=== PATIENT | female | born 1970 | race Caucasian/White ===

== ENCOUNTER 2016-05-10 09:33 | Inpatient (IN) | payer OTHER ==
[~2016-05-10] VITALS: Ht 175.3 cm; Wt 104.5 kg
[~2016-05-10 09:33] MED LIST changes: -ALPR.25 PO; -ALPR0.5T3 PO; -ASPI-110 PO; -ASPI81CH CHEW; -ATOR20TA15 PO; -B12-1CHW CHEW; -BIOT1CAP2 PO; -BIOT50005 PO; -CELE40TA PO; -CYAN1000P IM; -CYCL1TAB29 PO; -FERR1TAB36 PO; -FURO40TA PO; -GLIP5TAB8 PO; -HYDR-3583 PO; -LISI-519 PO; -LORA10TA PO; -LOSA50TA PO; -MULTCHW27 PO; -NEUR300C PO; -NITR0.4S SL; -PERC10TA27 PO; -PROM25TA5 PO; -VENL75TA PO; -VITA100T2 PO; -VITAMIN B12 INJ; -WALKER WHEELS/F1 MIS; -ZOFR4TAB PO
[2016-05-10] MEDS ORDERED: ASPI-110 PO (11:17)
[2016-05-10] MEDS ORDERED: ALPR0.5T3 PO (11:22)
[2016-05-10] MEDS ORDERED: BIOT1CAP2 PO (11:22)
[2016-05-10] MEDS ORDERED: MULTCHW27 PO (11:22)
[2016-05-10] MEDS ORDERED: FURO40TA PO (11:23)
[2016-05-10] MEDS ORDERED: LORA10TA PO (11:25)
[2016-05-10] MEDS ORDERED: ATOR20TA15 PO (11:25)
[2016-05-10] MEDS ORDERED: GLIP5TAB8 PO (11:25)
[2016-05-10] MEDS ORDERED: LOSA50TA PO (11:25)
[2016-05-10] MEDS ORDERED: CYCL1TAB29 PO (11:27)
[2016-05-10] MEDS ORDERED: NITR0.4S SL (11:27)
[2016-05-11] MEDS ORDERED: CYAN1000P IM (11:31)
[2016-05-15] MEDS ORDERED: METOPROLOL TARTRATE 25 MG TAB PO PRN (07:15)
[2016-05-15] MEDS ORDERED: LACTATED RINGER'S 1000 ML IV SCH (07:15)
[2016-05-15] MEDS ORDERED: INSULIN HUMAN REGULAR 1,000 UNITS/10 ML VIAL SQ PRN (07:15)
[2016-05-15] MEDS ORDERED: SODIUM CHLORID 0.9% 500 ML IV SCH (07:15)
[2016-05-15] MEDS ORDERED: THROMBIN (TOPICAL) 5,000 UNIT VIAL ONE ×2 (07:17→07:22)
[2016-05-15] MEDS ORDERED: BUPIVACAINE/EPINEPHRINE 0.5% PF 30 ML VIAL ONE (07:17)
[2016-05-15] MEDS ORDERED: GELFOAM SIZE 100 ONE (07:18)
[2016-05-15] MEDS ORDERED: methylPREDNISolone ACETATE 40 MG/ML VIAL ONE (07:18)
[2016-05-15] MEDS ORDERED: GENTAMICIN SULFATE 80 MG/2 ML VIAL ONE (07:18)
[2016-05-15] MEDS ORDERED: VENL75TA PO (07:30)
[2016-05-15 07:31] VITALS: BP 210/113; PULSE 80; RESP 18; TEMP 98.7; O2SAT 99
[2016-05-15] MEDS ORDERED: VANCOMYCIN HCL 1000 MG VIAL ONE (07:45)
[2016-05-15] MEDS ORDERED: ceFAZolin 2 GM PREMIX 50 ML ONE (07:45)
[2016-05-15] MEDS ORDERED: fentaNYL CITRATE 250 MCG/5 ML AMP ONE ×2 (08:12→14:14)
[2016-05-15] MEDS ORDERED: MIDAZOLAM HCL 5 MG/5 ML VIAL ONE (08:12)
[2016-05-15] MEDS ORDERED: ACETAMINOPHEN 1000 MG/100 ML VIAL IV ONE (08:12)
[2016-05-15] MEDS ORDERED: ARTIFICIAL TEARS OPTH OINT 3.5 APPLIC/3.5 GM TUBO ONE (08:12)
[2016-05-15] MEDS ORDERED: FAMOTIDINE 20 MG/2 ML VIAL ONE (08:12)
[2016-05-15] MEDS ORDERED: FLUCONAZOLE 400 MG PREMIX BAG 200 ML ONE (08:58)
[2016-05-15] MEDS ORDERED: SODIUM CHLOR 0.9% 250 ML INJ 250 ML IV ONE (12:00)
[2016-05-15] MEDS ORDERED: PHENYLEPH/NS 1000 MCG/10 ML SYR IV ONE (12:00)
[2016-05-15] MEDS ORDERED: SODIUM CHLORID 0.9% 500 ML INJ 500 ML IV ONE (12:00)
[2016-05-15] MEDS ORDERED: ONDANSETRON HCL 4 MG/2 ML VIAL IV PUSH ONE (12:00)
[2016-05-15] MEDS ORDERED: PROPOFOL 200 MG/20 ML AMP IV ONE (12:00)
[2016-05-15] MEDS ORDERED: ePHEDrine/NS 25 MG/5 ML SYR IV ONE (12:00)
[2016-05-15] MEDS ORDERED: NEOSTIGMINE 3 MG/3 ML SYR IV ONE (12:00)
[2016-05-15] MEDS ORDERED: LACTATED RINGER'S 1000 ML INJ 1,000 ML IV ONE ×2 (12:00)
[2016-05-15] MEDS ORDERED: DO NOT ADM ANY ANTICOAGULANT DRUGS XX PRN ×2 (12:48)
[2016-05-15] MEDS ORDERED: NALOXONE HCL 0.4 MG/ML AMP IV PRN (13:00)
[2016-05-15] MEDS ORDERED: NITROGLYCERIN 0.4 MG SL 25 TABS/BTL SL PRN (13:00)
[2016-05-15] MEDS ORDERED: ACETAMINOPHEN 325 MG TAB PO PRN (13:00)
[2016-05-15] MEDS ORDERED: SODIUM CHLORIDE 0.9% FLUSH 5 ML FLUSH IVF PRN (13:00)
[2016-05-15] MEDS ORDERED: diphenhydrAMINE HCL 50 MG/ML VIAL IV PRN (13:00)
[2016-05-15] MEDS ORDERED: ALPRAZolam 0.5 MG TAB PO PRN (13:00)
--- NOTE | 2016-05-15 13:14 | RADRPT ---
EXAM DATE/TIME: 05/15/2016 09:55 [facility] COMPARISON: No previous studies available for comparison. INDICATIONS : Hardware placement L5-S1. MEDICAL HISTORY : Myocardial infarction. Diabetes mellitus type II. SURGICAL HISTORY : Coronary artery stent. ENCOUNTER: Initial ACUITY: 1 day PAIN SCORE: Non-responsive. LOCATION: Lumbar spine/sacrum. FINDINGS: AP and lateral views of the lower lumbar spine obtained in the operating room show fusion procedure w ith interbody and posterior instrumentation at L5/S1. Alignment is normal. No fracture demonstrated o r other acute complication. CONCLUSION: L5/S1 fusion with interbody and posterior instrumentation in normal alignment. No acute complication demonstrated. Alistair Ambrocio MD on May 15, 2016 at 13:11 Board Certified Radiologist. This report was verified electronically.
[2016-05-15] MEDS ORDERED: ENALAPRILAT 1.25 MG/ML VIAL IV PRN (14:00)
[2016-05-15] MEDS: PCA - TOTAL MG DILAUDID DELIVERED PER SHIFT SCH (14:00)
[2016-05-15] MEDS ORDERED: DEXTROSE 50% IN WATER 50 ML VIAL(D50) IV PUSH PRN (14:00)
[2016-05-15] MEDS ORDERED: GLUCAGON 1 MG/ML VIAL OTHER PRN (14:00)
[2016-05-15] MEDS ORDERED: cloNIDine HCL 0.1 MG TAB PO PRN (14:00)
[2016-05-15] MEDS: NS + KCL 20 MEQ INJ 1,000 ML IV SCH (14:11)
[2016-05-15] MEDS: HYDROmorphone HCL PCA 6 MG/30 ML IV SCH (14:13)
[2016-05-15] MEDS ORDERED: DOCUSATE SODIUM 100 MG CAP PO PRN (14:15)
[2016-05-15] MEDS ORDERED: BISACODYL 10 MG SUPP PR PRN (14:15)
[2016-05-15] MEDS ORDERED: MAGNESIUM HYDROXIDE SUSP 30 ML CUP PO PRN (14:15)
[2016-05-15] MEDS ORDERED: LACTULOSE SYRUP 20 GM/30 ML CUP PO PRN (14:15)
--- NOTE | 2016-05-15 14:52 | PD.OP ---
Operative Report Date of Surgery: May 15, 2016 Preoperative Diagnosis: L5-S1 spondylolisthesis Postoperative Diagnosis: L5-S1 spondylolisthesis Procedure: L5-S1 laminectomy, interbody arthrodhesis using PEEK cage and autologous bone graft, L5-S1 instrumental fixation using transpedicular screws and rods, L5-S1 posterolateral fusion using autologous bone graft and demineralized bone matrix. Microsurgical dissection Anesthesia: general Surgeon: Kane Garcia Continuous Improvement Engineer(s): Raiza Harris Operation and Findings: INDICATIONS FOR THE SURGICAL PROCEDURE Ms Mendes is a 45 year-old female who presented with intractable mechanical back pain and violeta evidence of lower extremity radiculopathy. She had a spondylolisthesis at L5-S1. In addition she had these herniation at L4-L5 The patient has failed maximum nonsurgical management including multiple modalities of conservative treatment as well as pain management interventions by an interventional pain specialist. A surgical decompression and arthrodhesis were indicated as a last resort. Her insurance by peer review only approved treatment of the spondylolisthesis at L5-S1. The [id number] details of the procedure, indications, alternatives, risks and potential complications were fully discussed with the patient. The patient fully understood. All his questions were answered. No guarantees were given. The patient voiced requesting the procedure and provided informed consents. He was offered the alternative of delaying the procedure and continuing with nonsurgical management. DETAILS OF THE SURGICAL PROCEDURE Prior to the procedure, the surgical incision was marked in the preoperative surgical holding room, and the procedure, risks, and potential complications revisited with the patient. Placement of electrodes for intraoperative neurophysiological monitoring was completed. The patient was taken to the operative room, and following induction of general anesthesia, endotracheal intubation was performed. A Schuster catheter, bilateral RADHA hose and sequential compression devices were placed and kept throughout the procedure. The patient was positioned prone, over a Jose A table over a Tyson frame. All pressure in the preoperative surgical holding room points were carefully padded with eggcrate and gel mattress. The eyes were tapped shut after ointment was applied by the anesthesiologist to prevent corneal abrasion. A Lizbeth hugger was placed over the expossed lower body to maintain control of the core body temperature. The electrophysiological team placed the needles and electrodes in their proper location and baseline SSEP's and motor evoked potentials were registered. The entrance to each pedicles was marked using a C arm. The lumbar region was prepped and draped in the usual sterile fashion. The surgical procedure was performed in several steps as follow: SURGICAL APPROACH Once the patient was positioned, a localizing cross-table lateral x-ray was performed with a C-arm. Two paramedian small incisions were outlined on the skin approximately 3cm from the midline. The skin incisions were made with a # 10 blade. Small bleeders were controlled with the cautery. The dissection was then carried out into deper planes and through the thoracolumbar fascia with a Bovie. The intermuscular septum was identified and the myscles were blunted dissected along the septum. The facets and transverse process of L5 and S1 were exposed and the proper anatomical landmarks were identidied. A microsurgical self-retaining retractor was placed on the incision, and a localizing lateralizing cross-table x-ray was performed with an instrument underneath a lamina of the lumbar spine. There was a bilateral pars defect with gross instability of the bony structures. INSTRUMENTAL FIXATION At this point in the procedure, placement of bilateral transpedicular screws was necessary for stabilization of the spine. Initially, the entry point for the screw was selected anatomically at the junction of the facet, with the transverse process, and the pars interarticularis at L5 and at the sacrum. This was started with a Giamshetti needle followed by the use of a davis wire. A tap was used to create the threads for the screws. Finally bilateral transpedicular screws were carefully placed bilaterally at L5 and S1 under fluoroscopic visualization. An appropriate purchase was achieved with all screws. The position of each screw was assessed anatomically with an AP, lateral , oblique Xrays. An intraoperative scan view of the spine was then performed using the iso-centric c-arm. Each screw was then assessed electrophysiologically with a nerve stimulator. SURGICAL DECOMPRESSION There was significant mass effect with compression of the neural structures. In order to relieve neural compression, it was necessary to perform a decompressive laminectomy, with decompression of the spinal canal and bilateral lateral recesses. Note that the scope of such decompression was significantly more extensive than the minimal exposure necessary to perform an interbody fusion, as there was extreme facet arthropathy with near complete collapse of the disk spaces and severe stenosis cause by the hyperthrophic joint facets. At this point of the procedure the operative microscope was draped in the usual sterile fashion and brought to the field. The rest of the surgical procedure was performed using microdissection technique with the exception of the closure. Under the operating microscope, a decompressive laminectomy was carried out at L5-S1 as follow: The laminae, base of the spinous processes and facets were carefully drilled exposing the ligamentum flavum. The facets were abnormal with a bilateral pars defect and gross mechanical instability. A large disk protusion with an extruded disk was compressing the neural structures and exiting S1 nerve root. A near complete facetectomy was necessary, resulting in further mechanical instability. The ligamentum flavum appeared hypertrophic, resulting on mass effect on the dorsal surface of the neural structures. The superior free border of the ligamentum flavum was elevated with a ligament dissector and the ligamentum flavum was removed with a 3 and 4 mm Kerrison forceps. The ligament was very adherent to the dural sac and during the dissection, ans extreme care was taken during the dissection. The exiting nerve roots were identified, and a wide foraminotomy was performed with a Kerrison in their trajectory towards the neural foramen. Epidural veins located laterally to the dural sac were coagulated with the bipolar cautery, and then incised using microscissors. Gentle medial retraction of the dural sac allowed me to expose the disc space for the discectomy. Upon completion of the discectomy, an excellent decompression of the neural structures was achieved. Increased motion was noted, consistent with mechanical instability. INTERBODY ARTHRODHESIS In order to correct the narrowing of the disk space and maintain distraction of the space, and to achieve a solid interbody fusion, it was necessary the insertion of an interbody device into the disk space. Otherwise, the disk space would collapse, compromising the result of the surgical procedure. At this point of the procedure, the annulus fibrosus of the disk was carefully coagulated with a bipolar cautery and incised using an 11 bladed knife. Then, a microdiscectomy was carried out in a standard fashion using a combination of straight and up-biting pituitary forceps. A reverse angle curette was applied underneath the posterior longitudinal ligament, and used to push the disk fragments into the disk space, so they can be safely removed with a pituitary forceps. Once the discectomy was completed, it was necessary to decorticate the endplates, in order to eliminate the cartilaginous endplate and to expose healthy bone appropriate to perform the interbody fusion. The endplates at L5- S1 were then thoroughly decorticated using increasing size bone chuck and ring curets, eliminating the cartilaginous fragments from both, the superior and inferior endplates. A disk space distractor was applied to the pedicle screws and gentle distraction was applied. This maneuver was assisted by the use of a disk distractor. Increased motility was noted at the disk, which was consistent with instability due to facet arthropathy. Once a thorough preparation of the disk space was achieved, the disk space was irrigated with antibiotic solution, and the interbody fusion was performed by carefully impacting PPEK cages filled with autologous iliac crest bone graft. The cage was then deployed to 12mm, with an excellent, proper position of the interbody cage. A solid position of the cage with good purchase was achieved. The position of the cages were assessed anatomically with a probe and radiologically with the C-arm. POSTEROLATERAL FUSION The posterolateral fusion is a critical component to the procedure, to prevent future fatigue and failure of the instrumental fixation. Initially, the transverse processes of the vertebral bodies, lateral surface of the facets and the lateral gutters of the spine were carefully cleaned, eliminating all soft tissue and muscle attachments. The area was then irrigated with a large amount of antibiotic solution. Subsequently, the transverse processes, lateral surface of the facets, and lateral gutters of the spine were thoroughly decorticated using the TPS drill with a 5mm cutting dejah, exposing cancellous bone, in preparation for the posterolateral fusion. The incision was again irrigated with antibiotic solution. Then, the posterolateral fusion was then performed by carefully packing the lateral gutters of the spine at L5-S1 with autologous iliac crest bone combined with demineralized bone matrix. I packed as much bone as possible. COMPLETION OF THE INSTRUMENTATION AND CLOSURE The rods were brought to the field, applied to all the screws, and the screw caps were sequentially applied. Compression was performed between the pedicle screws, and final tightening of the screws was completed using a torque wrench. The incision was again thoroughly irrigated with several liters of antibiotic solution, and hemostasis secured with the bipolar cautery. A Valsalva Maneuver performed by the anesthesiologist failed to show any evidence of cerebrospinal fluid leak or bleeding. A 7 mm Jose A-Winslow drain was left in the epidural space and externalized through a separate stab incision. The incision was then closed in planes. 0 Vicryl was used in an interrupted fashion to close the thoracolumbar fascia and the superficial fascia. The subcutaneous tissue was then approximated using 3-0 Vicryl in an interrupted fashion. Special care was taken to avoid space. The skin was then closed with 4-0 Vicryl in a running, subcuticular fashion. Each plane of closure was irrigated with antibiotic solution. At the end of the procedure the sponge, needle and instrument counts were all correct. Estimated blood loss was 100-150 cc. No blood transfusion was given. The entire procedure was performed using continuous electrophysiological monitoring of the somatosensorial evoked potentials and EMG. The patient received prophylactic antibiotics. The patient was then extubated and transferred to the recovery room in stable condition. Addendum> the patient had a broad-based disc protrusion at L4 5. I requested authorization from her insurance which in peer review declined to provide me authorization to treat L4-5. A new peer review request to treat L4-5 was also not authorized aKne Garcia MD May 15, 2016 14:52
[2016-05-15] MEDS ORDERED: LORazepam 2 MG/ML VIAL IV PUSH PRN ×4 (15:45)
[2016-05-15] MEDS ORDERED: LORazepam 1 MG TAB PO PRN (15:45)
[2016-05-15] MEDS ORDERED: LORazepam 2 MG TAB PO PRN (15:45)
[2016-05-15] MEDS ORDERED: HALOPERIDOL LACTATE 5 MG/ML AMP IM PRN (15:45)
--- NOTE | 2016-05-15 15:54 | PD.CONS ---
HPI Service [facility] Hospitalists Consult Requested By Dr Garcia Reason for Consult Medical management Primary Care Physician Non-Staff Diagnoses: History of Present Illness This is a 45 year-old female with a history of intractable mechanical back pain with lower extremity radiculopathy secondary to spondylolisthesis at L5-S1. She also has herniation at L4-L5. The patient has failed maximum nonsurgical management including multiple modalities of conservative treatment as well as pain management interventions by an interventional pain specialist. She underwent elective L5-S1 laminectomy, interbody arthrodesis using PEEK cage and autologous bone graft, L5-S1 instrumental fixation using transpedicular screws and rods, L5-S1 posterolateral fusion using autologous bone graft and demineralized bone matrix. Microsurgical dissection by Dr. Garcia who requested consultation to evaluate and manage multiple medical conditions. Outside records and EMR reviewed. Patient has history of hearing loss, congestive heart failure, hypertension, hyperlipidemia, diabetes mellitus, COPD, migraines , coronary artery disease status post stent, anemia and anxiety. At this time her only complaint is anxiety. Patient was seen with her family. Case discussed with RN. Review of Systems Constitutional: DENIES: Diaphoretic episodes, Fatigue, Fever, Weight gain, Weight loss, Chills, Dizziness, Change in appetite, Night Sweats Endocrine: DENIES: Heat/cold intolerance, Polydipsia, Polyuria, Polyphagia Eyes: DENIES: Blurred vision, Diplopia, Vision loss, Photosensitivity Ears, nose, mouth, throat: DENIES: Tinnitus, Vertigo, Throat pain, Hoarseness, Epistaxis, Odynophagia Respiratory: DENIES: Cough, Wheezing, Hemoptysis, Sputum production, Shortness of breath Cardiovascular: DENIES: Chest pain, Palpitations, Syncope, Dyspnea on Exertion , PND, Lower Extremity Edema, Orthopnea, Claudication Gastrointestinal: DENIES: Abdominal pain, Black stools, Bloody stools, Constipation, Diarrhea, Nausea, Vomiting, Difficulty Swallowing, Anorexia Genitourinary: DENIES: Urinary frequency, Urinary incontinence, Urgency, Hematuria, Dysuria, Nocturia, Vaginal discharge Musculoskeletal: COMPLAINS OF: Joint pain, Back pain Integumentary: DENIES: Rash Neurologic: COMPLAINS OF: Paresthesias, DENIES: Headache, Localized weakness, Seizures, Tremor, Poor Balance Psychiatric: COMPLAINS OF: Anxiety, DENIES: Confusion, Depression, Hallucinations, Agitation, Suicidal Ideation, Homicidal Ideation, Delusions Past Family Social History Allergies: Coded Allergies: Latex (Verified Allergy, Severe, RASH, 05/15/16) Lactose (Verified Adverse Reaction, Severe, STOMACH CRAMPS, DIARRHEA, ) Niacin (Verified Adverse Reaction, Severe, FLUSHING , "HEAT RASH", 05/15/16) Levothyroxine (Verified Adverse Reaction, Intermediate, FLUSHING, RASH, 05/15/16) Morphine (Verified Adverse Reaction, Intermediate, headaches, 05/15/16) Past Medical History As previously mentioned Past Surgical History As previously mentioned. Appendectomy, gastric bypass, section 2 Reported Medications Claritin, losartan, Effexor, alprazolam, Flexeril, Lipitor, Lasix, multivitamins , sublingual nitroglycerin, aspirin, potassium, glipizide, biotin, B-12 Family History Diabetes mellitus and heart failure Social History Former smoker. Drinks 2 glasses of wine per day. Physical Exam Vital Signs Vital Signs Date Time Temp Pulse Resp B/P Pulse Ox O2 Delivery O2 Flow Rate FiO2 05/15/16 14:15 75 16 145/75 96 Nasal Cannula 2 05/15/16 14:13 16 05/15/16 14:00 16 05/15/16 14:00 77 16 145/70 96 Nasal Cannula 2 05/15/16 13:30 78 16 147/71 96 Nasal Cannula 3 05/15/16 13:15 75 16 137/73 99 Nasal Cannula 3 05/15/16 13:00 78 16 142/78 98 Nasal Cannula 3 05/15/16 12:50 97.6 74 16 136/82 98 Nasal Cannula 3 05/15/16 07:45 175/97 05/15/16 07:31 98.7 80 18 210/113 99 Physical Exam GENERAL: This is a obese, well-developed patient, in no apparent distress. SKIN: No rashes, ecchymoses or lesions. Cool and dry. HEAD: Atraumatic. Normocephalic. No temporal or scalp tenderness. EYES: Pupils equal round and reactive. Extraocular motions intact. No scleral icterus. No injection or drainage. ENT: Nose without bleeding, purulent drainage or septal hematoma. Throat without erythema, tonsillar hypertrophy or exudate. Uvula midline. Airway patent. NECK: Trachea midline. No JVD or lymphadenopathy. Supple, nontender, no meningeal signs. CARDIOVASCULAR: Regular rate and rhythm without murmurs, gallops, or rubs. RESPIRATORY: Clear to auscultation. Breath sounds equal bilaterally. No wheezes , rales, or rhonchi. GASTROINTESTINAL: Abdomen soft, non-tender, nondistended. No guarding. MUSCULOSKELETAL: Extremities without clubbing, cyanosis, or edema. No calf tenderness. Negative Homans sign bilaterally. NEUROLOGICAL: Lethargic but easily arousable answering questions appropriately. Cranial nerves II through XII intact. Motor and sensory grossly within normal limits. Five out of 5 muscle strength in all muscle groups. Normal speech. Laboratory 12/10/16 white count 4.7 hemoglobin 12.6 platelet 280,000, INR 1, sodium 137 creatinine 0.97 fasting glucose 154, urinalysis unremarkable Laboratory Tests Test 05/15/16 07:20 Blood Type A POSITIVE Antibody Screen NEGATIVE Blood Bank Comment Imaging Chest x-ray without acute cardiopulmonary disease performed 05/10/16 Last Impressions Lumbar Spine X-Ray 05/15/16 0000 Signed Impressions: Service Date/Time: Sunday, May 15, 2016 09:55 - CONCLUSION: L5/S1 fusion with interbody and posterior instrumentation in normal alignment. No acute complication demonstrated. Alistair Ambrocio MD Assessment and Plan Assessment and Plan This is a 45 year-old female with a history of intractable mechanical back pain with lower extremity radiculopathy secondary to spondylolisthesis at L5-S1. She also has herniation at L4-L5. The patient has failed maximum nonsurgical management including multiple modalities of conservative treatment as well as pain management interventions by an interventional pain specialist. She underwent elective L5-S1 laminectomy, interbody arthrodesis using PEEK cage and autologous bone graft, L5-S1 instrumental fixation using transpedicular screws and rods, L5-S1 posterolateral fusion using autologous bone graft and demineralized bone matrix. Microsurgical dissection by Dr. Garcia who requested consultation to evaluate and manage multiple medical conditions. Congestive heart failure. Compensated. Monitor for overload while on IV fluids. Continue Lasix and monitor electrolytes and renal function. Hypertension. Stable continue losartan, Lasix and as needed clonidine and Vasotec. Continue to monitor. Diabetes mellitus. Monitor fingersticks with sliding scale coverage. Continue glipizide Anxiety. Xanax as needed Chronic medical conditions of hyperlipidemia, COPD, migraines, coronary artery disease status post stent and anemia. Continue outpatient medications as appropriate. Restart aspirin when cleared by neurosurgery. DVT prophylaxis with SCD and early ambulation. No pharmacological prophylaxis secondary to nature of surgery. Discussed Condition With Patient, family and RN Kwadwo Lagos MD May 15, 2016 15:54
[2016-05-15 16:00] VITALS: BP 160/81; PULSE 91; RESP 20; TEMP 96.6; O2SAT 98
[2016-05-15] MEDS ORDERED: FLUMAZENIL 0.5 MG/5 ML VIAL IV PUSH PRN (16:00)
[2016-05-15] MEDS: glipiZIDE 5 MG TAB PO SCH (18:02)
[2016-05-15] MEDS: INSULIN ASPART SUPPLEMENTAL SCALE SQ SCH ×2 (18:03→21:00)
[2016-05-15] MEDS: ceFAZolin 2 GM PREMIX 50 ML IV SCH (18:04)
[2016-05-15 18:05] VITALS: O2SAT 98
[2016-05-15 20:00] VITALS: BP 157/79; PULSE 96; RESP 20; TEMP 96.8; O2SAT 94
[2016-05-15] MEDS: DOCUSATE SODIUM 50 MG/SENNA 8.6 MG TAB PO SCH (21:00)
[2016-05-15] MEDS: SODIUM CHLORIDE 0.9% FLUSH 5 ML FLUSH IVF SCH (21:00)
[2016-05-15] MEDS: ATORVASTATIN 20 MG TAB PO SCH ×2 (21:00→21:45)
[2016-05-16] VITALS (7 sets, daily range): BP systolic 138–180; BP diastolic 73–84; PULSE 78–92; RESP 20; TEMP 96.9–98.8; O2SAT 95–98
[2016-05-16] MEDS: NS + KCL 20 MEQ INJ 1,000 ML IV SCH (00:15)
[2016-05-16] MEDS: PCA - TOTAL MG DILAUDID DELIVERED PER SHIFT SCH ×4 (01:00→19:48)
[2016-05-16] MEDS: HYDROmorphone HCL PCA 6 MG/30 ML IV SCH ×2 (01:01→21:05)
[2016-05-16] MEDS: ceFAZolin 2 GM PREMIX 50 ML IV SCH ×2 (01:24→08:00)
[2016-05-16] MEDS: ONDANSETRON HCL 4 MG/2 ML VIAL IV PUSH PRN ×2 (02:50→10:41)
[2016-05-16] MEDS: glipiZIDE 5 MG TAB PO SCH ×2 (06:18→17:31)
[2016-05-16] MEDS: INSULIN ASPART SUPPLEMENTAL SCALE SQ SCH ×4 (06:20→21:00)
[2016-05-16 08:42] LABS: AUTOMATED NEUTROPHIL # 8.4 TH/MM3 (1.8-7.7); BASOPHIL % 0.1 % (0.0-2.0); HEMATOCRIT 33.6 % (35.0-46.0); HEMO FLAGS DIFF FINAL; LYMPH % 10.2 % (9.0-44.0); LYMPHOCYTE # 1.1 TH/MM3 (1.0-4.8); MEAN CELL VOLUME 86.6 FL (80.0-100.0); MEAN CORPUSCULAR HEMOGLOBIN 28.7 PG (27.0-34.0); MEAN CORPUSCULAR HGB CONC 33.2 % (32.0-36.0); NEUT % 80.7 % (16.0-70.0); PLATELET COUNT 217 TH/MM3 (150-450); RED BLOOD COUNT 3.88 MIL/MM3 (4.00-5.30); RED CELL DISTRIBUTION WIDTH 13.5 % (11.6-17.2); WHITE BLOOD COUNT 10.4 TH/MM3 (4.0-11.0)
[2016-05-16 08:50] LABS: POTASSIUM 4.7 MEQ/L (3.5-5.1)
[2016-05-16] MEDS: VENLAFAXINE HCL XR 75 MG CAP PO SCH (09:00)
[2016-05-16] MEDS: SODIUM CHLORIDE 0.9% FLUSH 5 ML FLUSH IVF SCH ×2 (09:00→21:00)
[2016-05-16] MEDS: MULTIVITAMIN HEMATINIC THERAPEUTIC TAB PO SCH (10:38)
[2016-05-16] MEDS: FUROSEMIDE 40 MG TAB PO SCH (10:38)
[2016-05-16] MEDS: FOLIC ACID 1 MG TAB PO SCH (10:38)
[2016-05-16] MEDS: LOSARTAN 50 MG TAB PO SCH (10:39)
[2016-05-16] MEDS: LORATADINE 10 MG TAB PO SCH (10:39)
[2016-05-16] MEDS: DOCUSATE SODIUM 50 MG/SENNA 8.6 MG TAB PO SCH ×2 (10:39→21:10)
--- NOTE | 2016-05-16 10:39 | HHI.PR ---
Subjective Remarks Follow-up spine surgery. Did not sleep well secondary to pain. Was also nauseous. Complains of anxiety and numbness of the left hand. She begs not to remove the Schuster catheter until late today. Discussed with RN Objective Vitals Vital Signs Date Time Temp Pulse Resp B/P Pulse Ox O2 Delivery O2 Flow Rate FiO2 05/16/16 08:12 98 21 05/16/16 07:39 98.8 84 20 149/76 97 05/16/16 04:00 98.3 89 20 143/75 96 05/16/16 01:01 19 05/16/16 01:00 19 05/16/16 00:00 96.9 92 20 149/80 96 05/15/16 20:00 96.8 96 20 157/79 94 05/15/16 18:05 98 Nasal Cannula 2.00 05/15/16 16:00 96.6 91 20 160/81 98 05/15/16 14:15 75 16 145/75 96 Nasal Cannula 2 05/15/16 14:13 16 05/15/16 14:00 16 05/15/16 14:00 77 16 145/70 96 Nasal Cannula 2 05/15/16 13:30 78 16 147/71 96 Nasal Cannula 3 05/15/16 13:15 75 16 137/73 99 Nasal Cannula 3 05/15/16 13:00 78 16 142/78 98 Nasal Cannula 3 05/15/16 12:50 97.6 74 16 136/82 98 Nasal Cannula 3 I/O 05/15/16 05/15/16 05/15/16 05/16/16 05/16/16 05/16/16 07:00 15:00 23:00 07:00 15:00 23:00 Intake Total 1950 ml 240 ml 120 ml Output Total 230 ml 540 ml 540 ml Balance 1720 ml -300 ml -420 ml Intake Oral 240 ml 120 ml IV Total 250 ml Other 1700 ml Output Urine Total 150 ml 500 ml 500 ml Drainage Total 10 ml 40 ml 40 ml Estimated Blood Loss 70 ml # Bowel Movements 0 0 Result Diagram: 05/16/1618 05/16/1618 Imaging Last Impressions Lumbar Spine X-Ray 05/15/16 0000 Signed Impressions: Service Date/Time: Sunday, May 15, 2016 09:55 - CONCLUSION: L5/S1 fusion with interbody and posterior instrumentation in normal alignment. No acute complication demonstrated. Alistair Ambrocio MD Objective Remarks GENERAL: This is a obese, well-developed patient, in no apparent distress. Out of bed to chair wearing a brace SKIN: No rashes, ecchymoses or lesions. Cool and dry. HEAD: Atraumatic. Normocephalic. No temporal or scalp tenderness. EYES: Pupils equal round and reactive. Extraocular motions intact. No scleral icterus. No injection or drainage. ENT: Nose without bleeding, purulent drainage or septal hematoma. Throat without erythema, tonsillar hypertrophy or exudate. Uvula midline. Airway patent. NECK: Trachea midline. No JVD or lymphadenopathy. Supple, nontender, no meningeal signs. CARDIOVASCULAR: Regular rate and rhythm without murmurs, gallops, or rubs. RESPIRATORY: Clear to auscultation. Breath sounds equal bilaterally. No wheezes , rales, or rhonchi. GASTROINTESTINAL: Abdomen soft, non-tender, nondistended. No guarding. MUSCULOSKELETAL: Extremities without clubbing, cyanosis, or edema. No calf tenderness. Negative Homans sign bilaterally. NEUROLOGICAL: Awake and alert. Cranial nerves II through XII intact. Motor and sensory grossly within normal limits. Five out of 5 muscle strength in all muscle groups. Normal speech. A/P Assessment and Plan This is a 45 year-old female with a history of intractable mechanical back pain with lower extremity radiculopathy secondary to spondylolisthesis at L5-S1. She also has herniation at L4-L5. The patient has failed maximum nonsurgical management including multiple modalities of conservative treatment as well as pain management interventions by an interventional pain specialist. She underwent elective L5-S1 laminectomy, interbody arthrodesis using PEEK cage and autologous bone graft, L5-S1 instrumental fixation using transpedicular screws and rods, L5-S1 posterolateral fusion using autologous bone graft and demineralized bone matrix. Microsurgical dissection by Dr. Garcia who requested consultation to evaluate and manage multiple medical conditions. Congestive heart failure. Compensated. Monitor for overload while on IV fluids. Continue Lasix and monitor electrolytes and renal function. Hypertension. Stable continue losartan, Lasix and as needed clonidine and Vasotec. Continue to monitor. Diabetes mellitus. Monitor fingersticks with sliding scale coverage. Continue glipizide Anxiety. Xanax as needed Anemia secondary to acute blood loss. Hemodynamically stable. Continue to monitor. Chronic medical conditions of hyperlipidemia, COPD, migraines, coronary artery disease status post stent and anemia. Continue outpatient medications as appropriate. Restart aspirin when cleared by neurosurgery. DVT prophylaxis with SCD and early ambulation. No pharmacological prophylaxis secondary to nature of surgery. Discharge Planning Discharge planning per neurosurgery Kwadwo Lagos MD May 16, 2016 10:39
[2016-05-16] MEDS: POTASSIUM CHLORIDE 20 MEQ CONTROLLED RELEASE TAB PO SCH (10:40)
[2016-05-16] MEDS: MULTIVITAMINS/MINERALS THERAPEUTIC TAB PO SCH (10:41)
[2016-05-16] MEDS: THIAMINE HCL 100 MG TAB PO SCH (10:41)
[2016-05-16] MEDS: PANTOPRAZOLE SODIUM 40 MG VIAL IVP SCH (10:42)
[2016-05-16] MEDS: CYANOCOBALAMIN 1000 MCG/ML VIAL IM SCH (10:42)
[2016-05-16] MEDS ORDERED: HYDROmorphone HCL 2 MG TAB PO PRN ×2 (11:15)
[2016-05-16] MEDS ORDERED: SODIUM CHLOR 0.9% 1000 ML INJ 1,000 ML IV SCH (11:15)
[2016-05-16] MEDS ORDERED: PILL SPLITTER OTHER PRN (11:30)
--- NOTE | 2016-05-16 14:41 | HHI.NSPN ---
(Judith Molina) Note Status Status: Progress Note (Judith Molina) Status: Progress Note (Kane Garcia MD) Interval History Interval History Ms. Mendes is a 45 year old female who underwent a L5-S1 laminectomy, interbody arthrodesis using PEEK cage and autologous bone graft, instrumental fixation using transpedicular screws and rods for spondylolisthesis on 05/15/16. 05/16: moderate surgical pain, denies chest pain, difficulty breathing. had some nausea earlier better with antiemetic. (Judith Molina) Labs, Micro, & Vital Signs Results Date Time Temp Pulse Resp B/P Pulse Ox O2 Delivery O2 Flow Rate FiO2 05/16/16 14:00 16 05/16/16 12:14 98.8 83 20 138/79 97 05/16/16 08:12 98 21 05/16/16 07:39 98.8 84 20 149/76 97 05/16/16 04:00 98.3 89 20 143/75 96 05/16/16 01:01 19 05/16/16 01:00 19 05/16/16 00:00 96.9 92 20 149/80 96 05/15/16 20:00 96.8 96 20 157/79 94 05/15/16 18:05 98 Nasal Cannula 2.00 05/15/16 16:00 96.6 91 20 160/81 98 05/15/16 14:15 75 16 145/75 96 Nasal Cannula 2 05/15/16 14:13 16 05/16/16 07:00 Intake Total 2310 ml Output Total 1310 ml Balance 1000 ml Constitutional Vital Signs Date Time Temp Pulse Resp B/P Pulse Ox O2 Delivery O2 Flow Rate FiO2 05/16/16 14:00 16 05/16/16 12:14 98.8 83 20 138/79 97 05/16/16 08:12 98 21 05/16/16 07:39 98.8 84 20 149/76 97 05/16/16 04:00 98.3 89 20 143/75 96 05/16/16 01:01 19 05/16/16 01:00 19 05/16/16 00:00 96.9 92 20 149/80 96 05/15/16 20:00 96.8 96 20 157/79 94 05/15/16 18:05 98 Nasal Cannula 2.00 05/15/16 16:00 96.6 91 20 160/81 98 05/15/16 14:15 75 16 145/75 96 Nasal Cannula 2 05/15/16 14:13 16 05/16/16 07:00 Intake Total 2310 ml Output Total 1310 ml Balance 1000 ml (Judith Molina) Review of Systems/Exam Exam Ms. Mendes is alert and oriented to time, place and person. Speech is appropriate. ZHANE drain with moderate serosanguineous output. Cranial nerve examination: pupils to be equal, round and reactive to light. Facial motor are normal and symmetrical. Neck is soft and supple Motor: moves major muscle groups of upper and lower extremities well Respiratory: clear, nonlabored (Judith Molina) Medications Current Medications Current Medications Medications (Trade) Dose Ordered Sig/[place] Route PRN Reason Start Time Stop Time Status Last Admin Dose Admin IV Flush (NS Flush) 2 ml UNSCH PRN IVF FLUSH AFTER USING IV ACCESS 05/15/16 13:00 05/16/16 02:51 IV Flush (NS Flush) 2 ml BID IVF 05/15/16 21:00 05/16/16 09:00 Pantoprazole Sodium (Protonix Inj) 40 mg DAILY IVP 05/16/16 09:00 05/16/16 10:42 Acetaminophen (Tylenol) 650 mg Q4H PRN PO TEMPERATURE > 101.5 F 05/15/16 13:00 Naloxone HCl (Narcan Inj) 0.4 mg UNSCH PRN IV RESPIRATORY RATE LESS THAN 10 05/15/16 13:00 Diphenhydramine HCl (Benadryl Inj) 25 mg Q6H PRN IV ITCHING 05/15/16 13:00 Hydromorphone HCl (Dilaudid RESIDENTIAL REAL ESTATE AGENT Inj) 6 mg UNSCH IV 05/15/16 13:00 05/16/16 01:01 RESIDENTIAL REAL ESTATE AGENT Dosage Infused (Pha) 1 Q8HR .XX 05/15/16 14:00 05/16/16 14:00 Alprazolam (Xanax) 0.5 mg Q8H PRN PO ANXIETY 05/15/16 13:00 Atorvastatin Calcium (Lipitor) 20 mg HS PO 05/15/16 21:00 Cyanocobalamin (Vitamin B12 Inj) 1,000 mcg DAILY IM 05/16/16 09:00 05/16/16 10:42 Cyclobenzaprine HCl (Flexeril) 10 mg TID PRN PO MUSCLE SPASM 05/15/16 13:00 Furosemide (Lasix) 40 mg DAILY PO 05/16/16 09:00 05/16/16 10:38 Glipizide (Glucotrol) 5 mg BIDAC PO 05/15/16 16:00 05/16/16 06:18 Loratadine (Claritin) 10 mg DAILY PO 05/16/16 09:00 05/16/16 10:39 Losartan Potassium (Cozaar) 50 mg DAILY PO 05/16/16 09:00 05/16/16 10:39 Multivitamin Hematinic Therapeutic (Theragran Hematinic) 1 tab DAILY PO 05/16/16 09:00 05/16/16 10:38 Nitroglycerin (Nitrostat Sl) 0.4 mg DAILY PRN SL CHEST PAIN 05/15/16 13:00 Potassium Chloride (KCl) 20 meq DAILY PO 05/16/16 09:00 05/16/16 10:40 Venlafaxine HCl (Effexor Xr) 150 mg DAILY PO 05/16/16 09:00 05/16/16 09:00 Dextrose (D50w (Vial) Inj) 25 ml UNSCH PRN IV PUSH HYPOGLYCEMIA-SEE COMMENTS 05/15/16 14:00 Glucagon (Glucagon Inj) 1 mg UNSCH PRN OTHER HYPOGLYCEMIA-SEE COMMENTS 05/15/16 14:00 Enalaprilat (Vasotec Inj) 1.25 mg Q6H PRN IV SBP> OR = 180, DBP> OR = 100 05/15/16 14:00 Clonidine (Catapres) 0.1 mg Q6H PRN PO SBP> OR = 180, DBP> OR = 100 05/15/16 14:00 Docusate Sodium (Colace) 100 mg BID PRN PO CONSTIPATION 05/15/16 14:15 Senna/Docusate Sodium (Felipa-Colace) 2 tab BID PO 05/15/16 21:00 05/16/16 10:39 Lactulose (Lactulose Liq) 30 ml TID PRN PO CONSTIPATION 05/15/16 14:15 Bisacodyl (Dulcolax Supp) 10 mg DAILY PRN [place] CONSTIPATION 05/15/16 14:15 Magnesium Hydroxide (Milk Of Magnesia Liq) 30 ml Q6H PRN PO CONSTIPATION 05/15/16 14:15 Folic Acid (Folate) 1 mg DAILY PO 05/16/16 09:00 05/21/16 08:59 05/16/16 10:38 Thiamine HCl (Vitamin B1) 100 mg DAILY PO 05/16/16 09:00 05/16/16 10:41 Multivitamins/ Minerals Therapeutic (Theragran M Tab) 1 tab DAILY PO 05/16/16 09:00 05/21/16 08:59 05/16/16 10:41 Flumazenil (Romazicon Inj) 0.2 mg Q1M PRN IV PUSH SEE LABEL COMMENTS 05/15/16 16:00 Lorazepam (Ativan) 1 mg Q4H PRN PO CIWA 8 - 10 05/15/16 15:45 Lorazepam (Ativan Inj) 1 mg Q4H PRN IV PUSH CIWA 8 - 10 05/15/16 15:45 Lorazepam (Ativan) 2 mg Q2H PRN PO CIWA 11-14 05/15/16 15:45 Lorazepam (Ativan Inj) 2 mg Q2H PRN IV PUSH CIWA 11-14 05/15/16 15:45 Lorazepam (Ativan Inj) 2 mg Q1H PRN IV PUSH CIWA 15-20 05/15/16 15:45 Lorazepam (Ativan Inj) 2 mg Q15M PRN IV PUSH CIWA > 20 05/15/16 15:45 Haloperidol Lactate (Haldol Inj) 2 mg Q15M PRN IM SEE LABEL COMMENTS 05/15/16 15:45 Ondansetron HCl 4 mg 4 mg Q8H PRN IV PUSH NAUSEA AND VOMITING 05/16/16 02:30 05/16/16 10:41 Sodium Chloride (NS 1000 ml Inj) 1,000 ml @ 0 mls/hr Q0M IV 05/16/16 11:15 05/16/16 13:47 Hydromorphone HCl (Dilaudid) 1 mg Q4H PRN PO PAIN SCALE 1 TO 5 05/16/16 11:15 Hydromorphone HCl (Dilaudid) 2 mg Q4H PRN PO PAIN SCALE 6 TO 10 05/16/16 11:15 Miscellaneous (Pill Splitter) 1 ea UNSCH PRN OTHER SEE LABEL COMMENTS 05/16/16 11:30 (Judith Molina) Medical Decision Making MDM Remarks 45 y/o female s/p L5-S1 laminectomy, interbody arthrodhesis using PEEK cage and autologous bone graft, instrumental fixation using transpedicular screws and rods 05/15/16 (Judith Molina) Plan Plan Remarks cont pain control with RESIDENTIAL REAL ESTATE AGENT pump IS every hour SCDs and TEDs for dvt prophylaxis PT, start mobilization out of bed LSO brace when out of bed medical management assistance appreciated (Judith Molina) Attending Statement The exam, history, and the medical decision-making described in the above note were completed with the assistance of the mid-level provider. I reviewed and agree with the findings presented. I attest that I had a [id number] encounter with the patient on the same day, and personally performed and documented my assessment and findings in the medical record. (Kane Garcia MD) Judith Molina May 16, 2016 14:41 Kane Garcia MD May 17, 2016 18:53
[2016-05-16] MEDS: ATORVASTATIN 20 MG TAB PO SCH (21:10)
[2016-05-16] MEDS: CYCLOBENZAPRINE HCL 10 MG TAB PO PRN (21:10)
[2016-05-17] VITALS (8 sets, daily range): BP systolic 120–155; BP diastolic 63–84; PULSE 73–79; RESP 18–20; TEMP 96.9–98; O2SAT 94–100
[2016-05-17] MEDS: PCA - TOTAL MG DILAUDID DELIVERED PER SHIFT SCH ×3 (06:00→22:00)
[2016-05-17] MEDS: glipiZIDE 5 MG TAB PO SCH ×2 (06:19→17:08)
[2016-05-17] MEDS: INSULIN ASPART SUPPLEMENTAL SCALE SQ SCH ×4 (06:19→21:00)
[2016-05-17] MEDS: MULTIVITAMIN HEMATINIC THERAPEUTIC TAB PO SCH (09:00)
[2016-05-17] MEDS: PANTOPRAZOLE SODIUM 40 MG VIAL IVP SCH (10:35)
[2016-05-17] MEDS: SODIUM CHLORIDE 0.9% FLUSH 5 ML FLUSH IVF SCH ×2 (10:36→22:30)
[2016-05-17] MEDS: VENLAFAXINE HCL XR 75 MG CAP PO SCH (10:36)
[2016-05-17] MEDS: DOCUSATE SODIUM 50 MG/SENNA 8.6 MG TAB PO SCH ×2 (10:37→22:34)
[2016-05-17] MEDS: LORATADINE 10 MG TAB PO SCH (10:37)
[2016-05-17] MEDS: POTASSIUM CHLORIDE 20 MEQ CONTROLLED RELEASE TAB PO SCH (10:37)
[2016-05-17] MEDS: LOSARTAN 50 MG TAB PO SCH (10:38)
[2016-05-17] MEDS: THIAMINE HCL 100 MG TAB PO SCH (10:39)
[2016-05-17] MEDS: FOLIC ACID 1 MG TAB PO SCH (10:39)
[2016-05-17] MEDS: MULTIVITAMINS/MINERALS THERAPEUTIC TAB PO SCH (10:39)
[2016-05-17] MEDS: FUROSEMIDE 40 MG TAB PO SCH (10:39)
[2016-05-17] MEDS: CYANOCOBALAMIN 1000 MCG/ML VIAL IM SCH (10:40)
[2016-05-17] MEDS: ONDANSETRON HCL 4 MG/2 ML VIAL IV PUSH PRN (11:04)
--- NOTE | 2016-05-17 11:08 | HHI.NSPN ---
(Judith Molina) Note Status Status: Progress Note (Judith Molina) Interval History Interval History Ms. Mendes is a 45 year old female who underwent a L5-S1 laminectomy, interbody arthrodesis using PEEK cage and autologous bone graft, instrumental fixation using transpedicular screws and rods for spondylolisthesis on 05/15/16. 05/16: moderate surgical pain, denies chest pain, difficulty breathing. had some nausea earlier better with antiemetic. 05/17: cont to report moderate surgical pain, nursing reports she is not pushing AGRICULTURAL EQUIPMENT DESIGN ENGINEER button as much. ZHANE minimal output. (Judith Molina) Labs, Micro, & Vital Signs Results Date Time Temp Pulse Resp B/P Pulse Ox O2 Delivery O2 Flow Rate FiO2 05/17/16 07:45 97.7 74 20 125/71 94 05/17/16 06:00 19 05/17/16 04:00 97.8 77 20 122/63 96 05/17/16 00:00 98.0 79 20 155/84 96 05/16/16 22:18 19 05/16/16 21:05 19 05/16/16 20:00 98.3 78 20 180/84 96 05/16/16 19:48 18 05/16/16 16:02 97.8 82 20 162/73 95 05/16/16 14:00 16 05/16/16 12:14 98.8 83 20 138/79 97 05/17/16 07:00 Intake Total 3476 ml Output Total 3030 ml Balance 446 ml Constitutional Vital Signs Date Time Temp Pulse Resp B/P Pulse Ox O2 Delivery O2 Flow Rate FiO2 05/17/16 07:45 97.7 74 20 125/71 94 05/17/16 06:00 19 05/17/16 04:00 97.8 77 20 122/63 96 05/17/16 00:00 98.0 79 20 155/84 96 05/16/16 22:18 19 05/16/16 21:05 19 05/16/16 20:00 98.3 78 20 180/84 96 05/16/16 19:48 18 05/16/16 16:02 97.8 82 20 162/73 95 05/16/16 14:00 16 05/16/16 12:14 98.8 83 20 138/79 97 05/17/16 07:00 Intake Total 3476 ml Output Total 3030 ml Balance 446 ml (Judith Molina) Review of Systems/Exam Exam Ms. Mendes is alert and oriented to time, place and person. Speech is appropriate. surgical incisions are clean and dry with prineo dressing in place. ZHANE drain with minimal drainage. Cranial nerve examination: pupils 4 mm equal, round and reactive to light. Facial motor are normal and symmetrical. Hard of wearing and wears hearing aids. Neck is soft and supple Motor: moves major muscle groups of upper and lower extremities well Plantars downgoing b/l Respiratory: nonlabored Skin: no cyanosis or erythema (Judith Molina) Medications Current Medications Current Medications Medications (Trade) Dose Ordered Sig/[place] Route PRN Reason Start Time Stop Time Status Last Admin Dose Admin IV Flush (NS Flush) 2 ml UNSCH PRN IVF FLUSH AFTER USING IV ACCESS 05/15/16 13:00 05/16/16 02:51 IV Flush (NS Flush) 2 ml BID IVF 05/15/16 21:00 05/17/16 10:36 Pantoprazole Sodium (Protonix Inj) 40 mg DAILY IVP 05/16/16 09:00 05/17/16 10:35 Acetaminophen (Tylenol) 650 mg Q4H PRN PO TEMPERATURE > 101.5 F 05/15/16 13:00 Naloxone HCl (Narcan Inj) 0.4 mg UNSCH PRN IV RESPIRATORY RATE LESS THAN 10 05/15/16 13:00 Diphenhydramine HCl (Benadryl Inj) 25 mg Q6H PRN IV ITCHING 05/15/16 13:00 Hydromorphone HCl (Dilaudid AGRICULTURAL EQUIPMENT DESIGN ENGINEER Inj) 6 mg UNSCH IV 05/15/16 13:00 05/16/16 21:05 AGRICULTURAL EQUIPMENT DESIGN ENGINEER Dosage Infused (Pha) 1 Q8HR .XX 05/15/16 14:00 05/17/16 06:00 Alprazolam (Xanax) 0.5 mg Q8H PRN PO ANXIETY 05/15/16 13:00 Atorvastatin Calcium (Lipitor) 20 mg HS PO 05/15/16 21:00 05/16/16 21:10 Cyanocobalamin (Vitamin B12 Inj) 1,000 mcg DAILY IM 05/16/16 09:00 05/17/16 10:40 Cyclobenzaprine HCl (Flexeril) 10 mg TID PRN PO MUSCLE SPASM 05/15/16 13:00 05/16/16 21:10 Furosemide (Lasix) 40 mg DAILY PO 05/16/16 09:00 05/17/16 10:39 Glipizide (Glucotrol) 5 mg BIDAC PO 05/15/16 16:00 05/17/16 06:19 Loratadine (Claritin) 10 mg DAILY PO 05/16/16 09:00 05/17/16 10:37 Losartan Potassium (Cozaar) 50 mg DAILY PO 05/16/16 09:00 05/17/16 10:38 Multivitamin Hematinic Therapeutic (Theragran Hematinic) 1 tab DAILY PO 05/16/16 09:00 05/16/16 10:38 Nitroglycerin (Nitrostat Sl) 0.4 mg DAILY PRN SL CHEST PAIN 05/15/16 13:00 Potassium Chloride (KCl) 20 meq DAILY PO 05/16/16 09:00 05/17/16 10:37 Venlafaxine HCl (Effexor Xr) 150 mg DAILY PO 05/16/16 09:00 05/17/16 10:36 Dextrose (D50w (Vial) Inj) 25 ml UNSCH PRN IV PUSH HYPOGLYCEMIA-SEE COMMENTS 05/15/16 14:00 Glucagon (Glucagon Inj) 1 mg UNSCH PRN OTHER HYPOGLYCEMIA-SEE COMMENTS 05/15/16 14:00 Enalaprilat (Vasotec Inj) 1.25 mg Q6H PRN IV SBP> OR = 180, DBP> OR = 100 05/15/16 14:00 Clonidine (Catapres) 0.1 mg Q6H PRN PO SBP> OR = 180, DBP> OR = 100 05/15/16 14:00 05/16/16 21:10 Docusate Sodium (Colace) 100 mg BID PRN PO CONSTIPATION 05/15/16 14:15 Senna/Docusate Sodium (Felipa-Colace) 2 tab BID PO 05/15/16 21:00 05/17/16 10:37 Lactulose (Lactulose Liq) 30 ml TID PRN PO CONSTIPATION 05/15/16 14:15 Bisacodyl (Dulcolax Supp) 10 mg DAILY PRN [place] CONSTIPATION 05/15/16 14:15 Magnesium Hydroxide (Milk Of Magnesia Liq) 30 ml Q6H PRN PO CONSTIPATION 05/15/16 14:15 Folic Acid (Folate) 1 mg DAILY PO 05/16/16 09:00 05/21/16 08:59 05/17/16 10:39 Thiamine HCl (Vitamin B1) 100 mg DAILY PO 05/16/16 09:00 05/17/16 10:39 Multivitamins/ Minerals Therapeutic (Theragran M Tab) 1 tab DAILY PO 05/16/16 09:00 05/21/16 08:59 05/17/16 10:39 Flumazenil (Romazicon Inj) 0.2 mg Q1M PRN IV PUSH SEE LABEL COMMENTS 05/15/16 16:00 Lorazepam (Ativan) 1 mg Q4H PRN PO CIWA 8 - 10 05/15/16 15:45 Lorazepam (Ativan Inj) 1 mg Q4H PRN IV PUSH CIWA 8 - 10 05/15/16 15:45 Lorazepam (Ativan) 2 mg Q2H PRN PO CIWA 11-14 05/15/16 15:45 Lorazepam (Ativan Inj) 2 mg Q2H PRN IV PUSH CIWA 11-14 05/15/16 15:45 Lorazepam (Ativan Inj) 2 mg Q1H PRN IV PUSH CIWA 15-20 05/15/16 15:45 Lorazepam (Ativan Inj) 2 mg Q15M PRN IV PUSH CIWA > 20 05/15/16 15:45 Haloperidol Lactate (Haldol Inj) 2 mg Q15M PRN IM SEE LABEL COMMENTS 05/15/16 15:45 Ondansetron HCl 4 mg 4 mg Q8H PRN IV PUSH NAUSEA AND VOMITING 05/16/16 02:30 05/16/16 10:41 Sodium Chloride (NS 1000 ml Inj) 1,000 ml @ 0 mls/hr Q0M IV 05/16/16 11:15 05/16/16 13:47 Hydromorphone HCl (Dilaudid) 1 mg Q4H PRN PO PAIN SCALE 1 TO 5 05/16/16 11:15 Hydromorphone HCl (Dilaudid) 2 mg Q4H PRN PO PAIN SCALE 6 TO 10 05/16/16 11:15 Miscellaneous (Pill Splitter) 1 ea UNSCH PRN OTHER SEE LABEL COMMENTS 05/16/16 11:30 (Judith Molina) Medical Decision Making MDM Remarks 45 y/o female s/p L5-S1 laminectomy, interbody arthrodhesis using PEEK cage and autologous bone graft, instrumental fixation using transpedicular screws and rods 05/15/16 (Judith Molina) Plan Plan Remarks cont AGRICULTURAL EQUIPMENT DESIGN ENGINEER pump, start [place] prn cont IS every hour SCDs and TEDs for dvt prophylaxis cont PT, encourage mobilization dc ZHANE drain, dc velazquez LSO brace when out of bed medical management assistance appreciated she reports she has good family support at home to take care of her anticipate dc home tomorrow am (Judith Molina) Attending Statement The exam, history, and the medical decision-making described in the above note were completed with the assistance of the mid-level provider. I reviewed and agree with the findings presented. I attest that I had a [id number] encounter with the patient on the same day, and personally performed and documented my assessment and findings in the medical record. (Kane Garcia MD) Judith Molina May 17, 2016 11:08 Kane Garcia MD May 17, 2016 18:58
[2016-05-17] MEDS ORDERED: WALKER WHEELS/F1 MIS (11:10)
[2016-05-17] MEDS ORDERED: ACETAMINOPHEN/HYDROcodone 325 MG/10 MG TAB PO PRN (11:15)
--- NOTE | 2016-05-17 11:25 | HHI.DCPOC ---
Discharge Care Plan Diagnosis: (1) Status post lumbar spinal fusion Goals to Promote Your Health * To prevent worsening of your condition and complications * To maintain your health at the optimal level Directions to Meet Your Goals Take your medications as prescribed Follow your dietary instruction Follow activity as directed Keep your appointments as scheduled Take your immunizations and boosters as scheduled If your symptoms worsen call your PCP, if no PCP go to Urgent Care Center or Emergency Room Smoking is Dangerous to Your Health. Avoid second hand smoke Call the 24-hour hour crisis hotline for domestic abuse at Judith Molina May 17, 2016 11:25
--- NOTE | 2016-05-17 11:25 | HHI.PR ---
Subjective Remarks Follow-up back surgery. Complaining of throbbing lower back pain and no radiculopathy. No numbness or incontinence. Also has a kink in the right neck from not sleeping well. Discussed with RN Objective Vitals Vital Signs Date Time Temp Pulse Resp B/P Pulse Ox O2 Delivery O2 Flow Rate FiO2 05/17/16 07:45 97.7 74 20 125/71 94 05/17/16 06:00 19 05/17/16 04:00 97.8 77 20 122/63 96 05/17/16 00:00 98.0 79 20 155/84 96 05/16/16 22:18 19 05/16/16 21:05 19 05/16/16 20:00 98.3 78 20 180/84 96 05/16/16 19:48 18 05/16/16 16:02 97.8 82 20 162/73 95 05/16/16 14:00 16 05/16/16 12:14 98.8 83 20 138/79 97 I/O 05/16/16 05/16/16 05/16/16 05/17/16 05/17/16 05/17/16 07:00 15:00 23:00 07:00 15:00 23:00 Intake Total 120 ml 720 ml 240 ml 2516 ml Output Total 540 ml 1200 ml 430 ml 1400 ml Balance -420 ml -480 ml -190 ml 1116 ml Intake Oral 120 ml 720 ml 240 ml 240 ml IV Total 2276 ml Output Urine Total 500 ml 1200 ml 400 ml 1400 ml Drainage Total 40 ml 30 ml # Bowel Movements 0 0 0 Result Diagram: 05/16/1618 05/16/16 0718 Imaging Last Impressions Lumbar Spine X-Ray 05/15/16 0000 Signed Impressions: Service Date/Time: Sunday, May 15, 2016 09:55 - CONCLUSION: L5/S1 fusion with interbody and posterior instrumentation in normal alignment. No acute complication demonstrated. Alistair Ambrocio MD Objective Remarks GENERAL: This is a obese, well-developed patient, in no apparent distress. SKIN: No rashes, ecchymoses or lesions. Cool and dry. HEAD: Atraumatic. Normocephalic. No temporal or scalp tenderness. EYES: Pupils equal round and reactive. Extraocular motions intact. No scleral icterus. No injection or drainage. ENT: Nose without bleeding, purulent drainage or septal hematoma. Throat without erythema, tonsillar hypertrophy or exudate. Uvula midline. Airway patent. NECK: Trachea midline. No JVD or lymphadenopathy. Supple, nontender, no meningeal signs. CARDIOVASCULAR: Regular rate and rhythm without murmurs, gallops, or rubs. RESPIRATORY: Clear to auscultation. Breath sounds equal bilaterally. No wheezes , rales, or rhonchi. GASTROINTESTINAL: Abdomen soft, non-tender, nondistended. No guarding. MUSCULOSKELETAL: Extremities without clubbing, cyanosis, or edema. No calf tenderness. Negative Homans sign bilaterally. NEUROLOGICAL: Awake and alert. Cranial nerves II through XII intact. Motor and sensory grossly within normal limits. Five out of 5 muscle strength in all muscle groups. Normal speech. A/P Assessment and Plan This is a 45 year-old female with a history of intractable mechanical back pain with lower extremity radiculopathy secondary to spondylolisthesis at L5-S1. She also has herniation at L4-L5. The patient has failed maximum nonsurgical management including multiple modalities of conservative treatment as well as pain management interventions by an interventional pain specialist. She underwent elective L5-S1 laminectomy, interbody arthrodesis using PEEK cage and autologous bone graft, L5-S1 instrumental fixation using transpedicular screws and rods, L5-S1 posterolateral fusion using autologous bone graft and demineralized bone matrix. Microsurgical dissection by Dr. Garcia who requested consultation to evaluate and manage multiple medical conditions. Congestive heart failure. Compensated. Monitor for overload while on IV fluids. Continue Lasix and monitor electrolytes and renal function. Hypertension. Stable continue losartan, Lasix and as needed clonidine and Vasotec. Continue to monitor. Diabetes mellitus. Monitor fingersticks with sliding scale coverage. Continue glipizide Anxiety. Xanax as needed Anemia secondary to acute blood loss. Hemodynamically stable. Continue to monitor. Torticollis. Heat pads and pain management. Chronic medical conditions of hyperlipidemia, COPD, migraines, coronary artery disease status post stent and anemia. Continue outpatient medications as appropriate. Restart aspirin when cleared by neurosurgery. DVT prophylaxis with SCD and early ambulation. No pharmacological prophylaxis secondary to nature of surgery. Discharge Planning Discharge planning per neurosurgery Kwadwo Lagos MD May 17, 2016 11:25
[2016-05-17] MEDS ORDERED: VITA100T2 PO (11:27)
[2016-05-17] MEDS ORDERED: HYDR-3583 PO (13:28)
[2016-05-17] MEDS: ACETAMINOPHEN/HYDROcodone 325 MG/10 MG TAB PO PRN ×2 (17:14→22:34)
[2016-05-17] MEDS: ATORVASTATIN 20 MG TAB PO SCH (22:33)
[2016-05-17] MEDS: CYCLOBENZAPRINE HCL 10 MG TAB PO PRN (22:33)
[2016-05-18 00:16] VITALS: BP 132/73; PULSE 78; RESP 18; TEMP 97.9; O2SAT 96
[2016-05-18 04:13] VITALS: BP 125/66; PULSE 74; RESP 18; TEMP 98; O2SAT 97
[2016-05-18] MEDS: PCA - TOTAL MG DILAUDID DELIVERED PER SHIFT SCH (06:00)
[2016-05-18] MEDS: CYCLOBENZAPRINE HCL 10 MG TAB PO PRN (06:42)
[2016-05-18] MEDS: glipiZIDE 5 MG TAB PO SCH (06:42)
[2016-05-18] MEDS: ACETAMINOPHEN/HYDROcodone 325 MG/10 MG TAB PO PRN ×2 (06:42→11:16)
[2016-05-18] MEDS: INSULIN ASPART SUPPLEMENTAL SCALE SQ SCH (06:42)
[2016-05-18] MEDS: HYDROmorphone HCL PCA 6 MG/30 ML IV SCH (06:51)
[2016-05-18 08:00] VITALS: BP 117/63; PULSE 74; RESP 18; TEMP 97.8; O2SAT 96
[2016-05-18] MEDS: CYANOCOBALAMIN 1000 MCG/ML VIAL IM SCH (09:00)
[2016-05-18] MEDS: SODIUM CHLORIDE 0.9% FLUSH 5 ML FLUSH IVF SCH (09:00)
[2016-05-18] MEDS: POTASSIUM CHLORIDE 20 MEQ CONTROLLED RELEASE TAB PO SCH (09:00)
[2016-05-18] MEDS: MULTIVITAMIN HEMATINIC THERAPEUTIC TAB PO SCH (09:11)
[2016-05-18] MEDS: MULTIVITAMINS/MINERALS THERAPEUTIC TAB PO SCH (09:11)
[2016-05-18] MEDS: LORATADINE 10 MG TAB PO SCH (09:11)
[2016-05-18] MEDS: DOCUSATE SODIUM 50 MG/SENNA 8.6 MG TAB PO SCH (09:12)
[2016-05-18] MEDS: LOSARTAN 50 MG TAB PO SCH (09:12)
[2016-05-18] MEDS: VENLAFAXINE HCL XR 75 MG CAP PO SCH (09:12)
[2016-05-18] MEDS: FOLIC ACID 1 MG TAB PO SCH (09:12)
[2016-05-18] MEDS: THIAMINE HCL 100 MG TAB PO SCH (09:13)
[2016-05-18] MEDS: FUROSEMIDE 40 MG TAB PO SCH (09:13)
[2016-05-18 10:00] VITALS: PULSE 77
[2016-05-18] MEDS ORDERED: PANTOPRAZOLE SOD 40 MG DELAYED RELEASE TAB PO SCH (10:00)
--- NOTE | 2016-05-18 10:16 | HHI.PR ---
Subjective Remarks Follow-up spine surgery. States she is doing okay not using TUNNEL ELASTIC OPERATOR LOCKSTITCH. She is going home today. Discussed with RN Objective Vitals Vital Signs Date Time Temp Pulse Resp B/P Pulse Ox O2 Delivery O2 Flow Rate FiO2 05/18/16 08:00 97.8 74 18 117/63 96 05/18/16 06:51 19 05/18/16 06:00 18 05/18/16 04:13 98.0 74 18 125/66 97 05/18/16 00:16 97.9 78 18 132/73 96 05/18/16 00:05 20 05/17/16 22:10 73 05/17/16 22:00 20 05/17/16 20:34 97.4 75 18 120/73 100 05/17/16 16:06 96.9 79 20 123/75 96 05/17/16 13:42 16 05/17/16 12:00 97.7 75 20 137/68 95 05/17/16 10:20 73 I/O 05/17/16 05/17/16 05/17/16 05/18/16 05/18/16 05/18/16 07:00 15:00 23:00 07:00 15:00 23:00 Intake Total 2516 ml 720 ml Output Total 1400 ml 40 ml 15 ml Balance 1116 ml 680 ml -15 ml Intake Oral 240 ml 720 ml IV Total 2276 ml Output Urine Total 1400 ml Drainage Total 40 ml 15 ml # Voids 3 1 # Bowel Movements 0 Result Diagram: 05/16/16 0718 05/16/16 0718 Imaging Last Impressions Lumbar Spine X-Ray 05/15/16 0000 Signed Impressions: Service Date/Time: Sunday, May 15, 2016 09:55 - CONCLUSION: L5/S1 fusion with interbody and posterior instrumentation in normal alignment. No acute complication demonstrated. Alistair Ambrocio MD Objective Remarks GENERAL: This is a obese, well-developed patient, in no apparent distress. SKIN: No rashes, ecchymoses or lesions. Cool and dry. HEAD: Atraumatic. Normocephalic. No temporal or scalp tenderness. EYES: Pupils equal round and reactive. Extraocular motions intact. No scleral icterus. No injection or drainage. ENT: Nose without bleeding, purulent drainage or septal hematoma. Throat without erythema, tonsillar hypertrophy or exudate. Uvula midline. Airway patent. NECK: Trachea midline. No JVD or lymphadenopathy. Supple, nontender, no meningeal signs. CARDIOVASCULAR: Regular rate and rhythm without murmurs, gallops, or rubs. RESPIRATORY: Clear to auscultation. Breath sounds equal bilaterally. No wheezes , rales, or rhonchi. GASTROINTESTINAL: Abdomen soft, non-tender, nondistended. No guarding. MUSCULOSKELETAL: Extremities without clubbing, cyanosis, or edema. No calf tenderness. Negative Homans sign bilaterally. NEUROLOGICAL: Awake and alert. Cranial nerves II through XII intact. Motor and sensory grossly within normal limits. Five out of 5 muscle strength in all muscle groups. Normal speech. Nonfocal A/P Assessment and Plan This is a 45 year-old female with a history of intractable mechanical back pain with lower extremity radiculopathy secondary to spondylolisthesis at L5-S1. She also has herniation at L4-L5. The patient has failed maximum nonsurgical management including multiple modalities of conservative treatment as well as pain management interventions by an interventional pain specialist. She underwent elective L5-S1 laminectomy, interbody arthrodesis using PEEK cage and autologous bone graft, L5-S1 instrumental fixation using transpedicular screws and rods, L5-S1 posterolateral fusion using autologous bone graft and demineralized bone matrix. Microsurgical dissection by Dr. Garcia who requested consultation to evaluate and manage multiple medical conditions. Congestive heart failure. Compensated. Monitor for overload while on IV fluids. Continue Lasix and monitor electrolytes and renal function. Hypertension. Stable continue losartan, Lasix and as needed clonidine and Vasotec. Continue to monitor. Diabetes mellitus. Monitor fingersticks with sliding scale coverage. Continue glipizide Anxiety. Xanax as needed Anemia secondary to acute blood loss. Hemodynamically stable. Continue to monitor. Torticollis. Heat pads and pain management. Chronic medical conditions of hyperlipidemia, COPD, migraines, coronary artery disease status post stent and anemia. Continue outpatient medications as appropriate. Restart aspirin when cleared by neurosurgery. DVT prophylaxis with SCD and early ambulation. No pharmacological prophylaxis secondary to nature of surgery. Stable for discharge from medical standpoint Discharge Planning Discharge planning per neurosurgery Kwadwo Lagos MD May 18, 2016 10:16
[2016-05-18 12:00] VITALS: BP 121/71; PULSE 80; RESP 18; TEMP 98.1; O2SAT 96
--- NOTE | 2016-05-18 12:03 | HHI.FF ---
Face to Face Verification Diagnosis: (1) Status post lumbar spinal fusion Physical Therapy Order: Improve ambulation Home Health Nursing Order: Signs/symptoms of disease process Nursing assessment with vital signs I have seen patient Jessy Mendes on 05/18/16. My clinical findings support the need for the requested home health care services because: Deconditioned w/ increased weakness I certify that my clinical findings support that this patient is homebound because: Post-op weakness Judith Molina May 18, 2016 12:03
[2016-05-27] MEDS ORDERED: PROM25TA5 PO (16:13)
[2016-05-27] MEDS ORDERED: PERC10TA27 PO (16:17)
[2016-05-27] MEDS ORDERED: NEUR300C PO (16:27)
[2016-06-04] MEDS ORDERED: NEUR300C PO (10:59)
[2016-06-04] MEDS ORDERED: PROM25TA5 PO (11:07)
[2016-06-10] MEDS ORDERED: PERC10TA27 PO (16:52)
--- NOTE | 2016-06-20 14:24 | HHI.DS ---
Discharge Summary Admission Date May 15, 2016 at 06:28 Discharge Date: May 18, 2016 Admitting Diagnosis s/p lumbar fusion (1) Status post lumbar spinal fusion ICD Code: Z98.1 Brief History Ms Mendes is a 45 year-old female who presented with intractable mechanical back pain and violeta evidence of lower extremity radiculopathy. She had a spondylolisthesis at L5-S1. In addition she had these herniation at L4-L5 The patient has failed maximum nonsurgical management including multiple modalities of conservative treatment as well as pain management interventions by an interventional pain specialist. A surgical decompression and arthrodesis were indicated as a last resort. Her insurance by peer review only approved treatment of the spondylolisthesis at L5-S1. Imaging Last Impressions Lumbar Spine X-Ray 05/15/16 0000 Signed Impressions: Service Date/Time: Friday, May 15, 2016 09:55 - CONCLUSION: L5/S1 fusion with interbody and posterior instrumentation in normal alignment. No acute complication demonstrated. Alistair Ambrocio MD Hospital Course Ms. Mendes underwent a L5-S1 laminectomy, interbody arthrodesis using PEEK cage and autologous bone graft, L5-S1 instrumental fixation using transpedicular screws and rods, L5-S1 posterolateral fusion using autologous bone graft and demineralized bone matrix, microsurgical dissection on May 15, 2016. Her pain was managed with COMPUTER SCI[employer]ER pump that was subsequently weaned off. Her surgical pain improved and tolerable on oral pain medications. She was discharged home with home health care in stable conditions. Wound care and activity restrictions were discussed. Pt Condition on Discharge: Stable Discharge Disposition: Disch w/ Home Health Serv Discharge Instructions DIET: Follow Instructions for: Heart Healthy Diet, Diabetic Diet ACTIVITIES You can perform: Weight Bearing As [place] ADDITIONAL Activity Instructio: Avoid strenuous activities, heavy lifting, overhead activities, repetitive bending, twisting, pushing, pulling or any activities which might result in stress over the spine. Avoid situtation that will put at risk for falls. Use assistive device as needed for walking. Wear lumbar brace when out of bed. Follow up Referrals: PCP Follow-up - 1 Week New Medications: Walker with Front Wheels (Walker with Front Wheels) 1 Mis Mis 1 EA .ROUTE DIRECTED #1 Ref 0 EA Thiamine (Vitamin B-1) 100 Mg Tab 100 MG PO DAILY Alcohol Detox #30 TAB Continued Medications: Alprazolam (Alprazolam) 0.5 Mg Tab 0.5 MG PO Q8H PRN ANXIETY Ref 0 TAB Atorvastatin (Atorvastatin) 20 Mg Tab 20 MG PO HS Cholesterol Management #30 Ref 0 TAB Biotin (Biotin) 1 Mg Cap Unknown Dose PO DAILY #1 BOTTLE Cyanocobalamin Inj (Cyanocobalamin Inj) 1,000 Mcg/Ml Inj 1000 MCG IM EVERY 2 WEEKS #1 Ref 0 VIAL Cyclobenzaprine (Flexeril) 10 Mg Tab 10 MG PO TID PRN MUSCLE SPASM #90 Ref 0 TAB Furosemide (Furosemide) 40 Mg Tab 40 MG PO DAILY #30 Ref 0 TAB Glipizide (Glipizide) 5 Mg Tab 5 MG PO BIDAC Take 30 minutes before a meal Blood Sugar Management #60 Ref 0 TAB Loratadine (Loratadine) 10 Mg Tab 10 MG PO DAILY Allergy Management Ref 0 TAB Losartan (Losartan) 50 Mg Tab 50 MG PO DAILY Blood Pressure Management #30 Ref 0 TAB Multiple Vitamins W/ Minerals (Multivitamin Women 50+) 1 Tab Tab 1 TAB PO DAILY Nitroglycerin SL (Nitrostat SL) 0.4 Mg Subl 0.4 MG SL DIRECTED 1 tablet under the tongue as needed for chest pain. Repeat every 5 minutes for a total of 3 DOSES or call 911 if NO relief. PRN CHEST PAIN #100 Ref 0 TAB.SL Potassium Chloride ER (Potassium Chloride ER) 20 Meq Tab 20 MEQ PO DAILY Electrolyte Replacement #30 Ref 0 TAB Venlafaxine (Effexor) 75 Mg Tab 75 MG PO Q12H #60 Ref 0 TAB Judith Molina Jun 20, 2016 14:24
== END 2016-05-18 14:46 | disposition home health service (06) | DRG 460 ==
LOC: HSDI 05-15 06:28 → EDUNIT# 05-15 08:30 → N05B 05-15 14:38
PROVIDERS: ADMIT Neurological Surgery; ATTEND Neurological Surgery
PROC: 0ST40ZZ Resection of Lumbosacral Disc, Open Approach (ICD-10-PCS; 2016-05-15)
PROC: 0SG3071 Fusion of Lumbosacral Joint with Autologous Tissue Substitute, Posterior Approach, Posterior Column, Open Approach (ICD-10-PCS; principal; 2016-05-15 08:33)
DX: M43.17 Spondylolisthesis, lumbosacral region (principal); I50.9 Heart failure, unspecified; J44.9 Chronic obstructive pulmonary disease, unspecified; I10 Essential (primary) hypertension; E11.9 Type 2 diabetes mellitus without complications; D64.9 Anemia, unspecified; M51.17 Intervertebral disc disorders with radiculopathy, lumbosacral region; E78.5 Hyperlipidemia, unspecified; I25.10 Atherosclerotic heart disease of native coronary artery without angina pectoris; H91.90 Unspecified hearing loss, unspecified ear; F41.9 Anxiety disorder, unspecified; G43.909 Migraine, unspecified, not intractable, without status migrainosus; M43.6 Torticollis; Z95.5 Presence of coronary angioplasty implant and graft; Z98.84 Bariatric surgery status; Z87.891 Personal history of nicotine dependence; Z79.84 Long term (current) use of oral hypoglycemic drugs
CPT/HCPCS: 72100; 76000; 80048; 82948; 85025; 86850; 86900; 86901; 94150; C1713; C9113; J0131; J0690; J1030; J1170; J1450; J1580; J1815; J2250; J2370; J2405; J2710; J3010; J3370; J3420; J3480; J7030; J7040; J7050; J7120; L0200; L0484

== ENCOUNTER → 2016-05-10 | Outpatient (CLI) | payer OTHER ==
[~2016-05-10] MED LIST: ALPR.25 PO; ALPR0.5T3 PO; ASPI-110 PO; ASPI81CH CHEW; ATOR20TA15 PO; B12-1CHW CHEW; BIOT1CAP2 PO; BIOT50005 PO; CELE40TA PO; CYAN1000P IM; CYCL1TAB29 PO; FERR1TAB36 PO; FURO40TA PO; GLIP5TAB8 PO; HYDR-3583 PO; LISI-519 PO; LORA10TA PO; LOSA50TA PO; MULT1TAB96 PO; MULTCHW27 PO; NEUR300C PO; NITR0.4S SL; PERC10TA27 PO; POTA-163 PO; PROM25TA5 PO; VENL75TA PO; VITA100T2 PO; VITAMIN B12 INJ; WALKER WHEELS/F1 MIS; ZOFR4TAB PO
[2016-05-10 11:30] LABS: AUTOMATED NEUTROPHIL # 2.5 TH/MM3 (1.8-7.7); BASOPHIL % 0.8 % (0.0-2.0); EOSINOPHIL # 0.1 TH/MM3 (0-0.4); EOSINOPHIL % 2.4 % (0.0-4.0); HEMATOCRIT 37.4 % (35.0-46.0); HEMO FLAGS DIFF FINAL; LYMPH % 32.8 % (9.0-44.0); LYMPHOCYTE # 1.5 TH/MM3 (1.0-4.8); MEAN CELL VOLUME 86.9 FL (80.0-100.0); MEAN CORPUSCULAR HEMOGLOBIN 29.4 PG (27.0-34.0); MEAN CORPUSCULAR HGB CONC 33.8 % (32.0-36.0); MONO % 9.5 % (0.0-8.0); NEUT % 54.5 % (16.0-70.0); PLATELET COUNT 280 TH/MM3 (150-450); RED CELL DISTRIBUTION WIDTH 13.2 % (11.6-17.2); WHITE BLOOD COUNT 4.7 TH/MM3 (4.0-11.0)
[2016-05-10 11:38] LABS: BLOOD, URINE NEG (NEG); COMMENT (UR) CULT NOT INDICATED; CULTURE IF INDICATED CULT NOT INDICATED; GLUCOSE,URINE NEG (NEG); KETONE, URINE NEG (NEG); MUCUS URINE FEW /lpf (OCC); NITRITE,URINE NEG (NEG); PH, URINE 5.5 (5.0-8.5); SQUAMOUS EPITHELIAL CELL URINE 3 /hpf (0-5); URINE COLOR YELLOW (YELLW/STRAW)
[2016-05-10 11:50] LABS: ANION GAP 7 MEQ/L (5-15); AST (GOT) 18 U/L (15-37); BICARBONATE 28.9 MEQ/L (21.0-32.0); BLOOD UREA NITROGEN 15 MG/DL (7-18); CHLORIDE 101 MEQ/L (98-107); GLOMERULAR FILTRATION RATE 62 ML/MIN (>89); GLUCOSE,FASTING 154 MG/DL (74-99); POTASSIUM 4.5 MEQ/L (3.5-5.1); SODIUM (NA) 137 MEQ/L (136-145)
[2016-05-10 11:52] LABS: PROTHROMBIN TIME - PATIENT 11.2 SEC (9.8-11.6)
[2016-05-10 11:54] LABS: ALKALINE PHOSPHATASE 96 U/L (45-117); ALT (GPT) 27 U/L (10-53); TOTAL BILIRUBIN ADULT 0.4 MG/DL (0.2-1.0)
--- NOTE | 2016-05-10 13:07 | RADRPT ---
EXAM DATE/TIME: 05/10/2016 12:16 [facility] COMPARISON: No previous studies available for comparison. INDICATIONS : Evaluate for pnuemothorax, pneumonia, or communicable disease. Pre op for laminectomy. MEDICAL HISTORY : Cardiovascular disease. SURGICAL HISTORY : Coronary artery stent. ENCOUNTER: Initial ACUITY: 1 day PAIN SCORE: 0/10 LOCATION: Bilateral chest FINDINGS: PA and lateral views of the chest demonstrate the lungs to be symmetrically aerated without evidence of mass, infiltrate or effusion. The cardiomediastinal contours are unremarkable. Osseous structure s are intact. CONCLUSION: No acute disease. Wesley Damon MD FACR on May 10, 2016 at 13:05 Board Certified Radiologist. This report was verified electronically.
--- NOTE | 2016-05-15 18:54 | EKG ---
Date Performed: 05/10/2016 Time Performed: 11:01:46 PTAGE: 45 years EKG: Sinus rhythm SEPTAL MYOCARDIAL INFARCTION, OF INDETERMINATE AGE ABNORMAL ECG NO PREVIOUS TRACING DOCTOR: Adriano Motta Interpretating Date/Time 05/15/2016 18:50:31
== END ==
LOC: CPRE 10:35
PROVIDERS: ATTEND Neurological Surgery
DX: Z01.810 Encounter for preprocedural cardiovascular examination (principal); Z01.811 Encounter for preprocedural respiratory examination; Z01.812 Encounter for preprocedural laboratory examination; Z01.818 Encounter for other preprocedural examination; Z79.01 Long term (current) use of anticoagulants; M43.16 Spondylolisthesis, lumbar region
CPT/HCPCS: 36415; 71020; 80053; 81001; 85025; 85610; 85730; 93005